=== PATIENT | male | born 1970 | race Caucasian/White ===

== ENCOUNTER → 2020-11-06 08:33 | Outpatient (BNVA) | payer OTHER, SELFPAY | PROVIDERS: PCP Physician Assistant; Referring Provider Physician Assistant; Visit Provider Family Medicine Adult Medicine | DX: Z76.89 Persons encountering health services in other specified circumstances (principal) ==

== ENCOUNTER → 2021-02-05 08:56 | Outpatient (BNVA) | payer OTHER, SELFPAY | PROVIDERS: PCP Physician Assistant; Visit Provider Family Medicine Adult Medicine ==

== ENCOUNTER → 2021-03-05 09:33 | Outpatient (BNVA) | payer OTHER, SELFPAY | PROVIDERS: PCP Physician Assistant; Visit Provider Family Medicine Adult Medicine | DX: M54.16 Radiculopathy, lumbar region (principal) ==

== ENCOUNTER → 2021-04-02 09:20 | Outpatient (BNVA) | payer OTHER, SELFPAY | PROVIDERS: PCP Physician Assistant; Visit Provider Family Medicine Adult Medicine | DX: M54.16 Radiculopathy, lumbar region (principal) ==

== ENCOUNTER → 2021-05-07 09:57 | Outpatient (BNVA) | payer OTHER, SELFPAY | PROVIDERS: PCP Physician Assistant; Visit Provider Anesthesiology ==

== ENCOUNTER → 2021-06-02 08:30 | Outpatient (BNVA) | payer OTHER, SELFPAY | PROVIDERS: PCP Physician Assistant; Visit Provider Family Medicine Adult Medicine | DX: M54.16 Radiculopathy, lumbar region (principal) ==

== ENCOUNTER → 2021-06-30 14:51 | Outpatient (BNVA) | payer OTHER, SELFPAY | PROVIDERS: PCP Physician Assistant; Visit Provider Family Medicine Adult Medicine ==

== ENCOUNTER 2021-07-31 16:34 | Outpatient (REF) | payer OTHER, SELFPAY ==
--- NOTE | ~2021-07-31 | MR_ITS ---
EXAMINATION: MR LUMBAR SPINE WITHOUT CONTRAST CLINICAL INFORMATION: Chronic pain syndrome. COMPARISON: There are no prior studies available for comparison. TECHNIQUE: MRI of the lumbar spine was obtained using routine sequences without contrast. FINDINGS: VERTEBRAL BODIES AND PARASPINAL STRUCTURES: There is a mild retrolisthesis of L5 on S1 with narrowing of intervertebral disc height. There is also narrowing of intervertebral disc height at L4-L5, and there is loss of signal from the discs at both these levels. There are degenerative endplate contour changes at these levels with predominantly fatty endplate signal. Intervertebral discs appear normal at other levels. The vertebral bodies have normal height and contour, and no fractures are demonstrated. Marrow signal is homogenous. The visualized retroperitoneal and pelvic structures are unremarkable. CONUS MEDULLARIS AND CAUDA EQUINA: Normal, terminating at the level of L1. The lower thoracic spinal cord appears normal. The cauda equina nerve roots and filum terminale appear normal. SPINAL LEVELS: L1-L2 and L2-L3: The facet joints appear normal bilaterally. Disc contour is normal. There is no central stenosis or foraminal narrowing. L3-L4: There is mild facet arthropathy bilaterally. There is a small left foraminal disc protrusion without definite exiting nerve root impingement. The neural foramina are patent. There is no central stenosis. L4-L5: There is mild bilateral facet arthropathy. There is a broad-based disc protrusion which is most prominent on the left extending into the left subarticular recess with impingement on the traversing left L5 nerve root. Small protrusions are noted in the inferior neural foramina bilaterally with likely impingement on the exiting left L4 nerve root. There is no central stenosis. L5-S1: There is moderate bilateral facet arthropathy. There is a broad-based posterior disc protrusion which is focally more prominent in the midline with mild distortion of the ventral thecal sac. There is no central stenosis. Small foraminal disc osteophyte complexes impinging on the exiting L5 nerve roots. MR/MR lumbar spine wo con IMPRESSION: 1. At L4-L5 there is facet arthropathy and a broad-based posterior disc protrusion extending into the left neural foramen with impingement on the exiting L4 and traversing L5 nerve roots. There is no central stenosis. 2. At L5-S1 there are facet arthropathic changes. There is a small disc protrusion without central stenosis. There are small disc osteophyte complexes impinging on the exiting L5 nerve roots.
== END 2021-07-31 16:35 | disposition home or self-care (01) ==
LOC: HO.MRI 16:34
PROVIDERS: Visit Provider Anesthesiology
DX: M54.16 Radiculopathy, lumbar region (principal); M96.1 Postlaminectomy syndrome, not elsewhere classified; G89.4 Chronic pain syndrome
CPT/HCPCS: 72148

== ENCOUNTER 2023-08-31 08:01 | Outpatient (AMB) | payer OTHER, SELFPAY ==
--- NOTE | 2023-08-31 08:24 | A.OFFPC_ITS ---
Vital Signs 08/31/23 08:25 Height 5 ft 11 in Weight 208 lb BMI 29.0 BP 116/78 Blood Pressure Location Lt brachial Position Sitting Pulse 88 Pulse Source Pulse Oximeter Pulse Oximetry (%) 98 Oxygen Delivery Method Room Air Intake Visit Reasons: medication review [employer] Product Development Manager Required: No Accompanied by: Self / Same As Patient Allergies No Known Allergies [No Known Allergies*] Allergy (Verified 08/31/23 08:36) Medication List - Last Reconciled 08/31/23 by Mark Marino PA-C albuterol sulfate 90 mcg/actuation 2 puffs inhalation Q4H PRN aspirin (Adult Low Dose Aspirin) 81 mg PO DAILY esomeprazole magnesium (Nexium) 20 mg PO DAILY ibuprofen 200 mg PO Q6H PRN ketoconazole 2% 1 appl topical 2XW 4 weeks lidocaine 5% 1 appl topical DAILY PRN 30 days tramadol 50 mg PO BID 30 days Tobacco use date assessed: 08/31/23 Dental Screening Dental Screen Date: 08/31/23 Did you have a dental visit in the last 12 months?: No Did you have a dental problem in the last 6 months where you did not have access to dental care?: No Was dental information given to patient?: No HPI medication review HPI Details Patient is a 52-year-old male here today for a six-month follow-up visit. Patient has a past medical history significant for chronic lumbar disc disease/post laminectomy syndrome, tobacco use disorder, asthma. Concerns: Reports having a warty like lesion on his left hand. Has tried [id number] meds without effectiveness. He would like treatment for this. .. Asthma: Reports his asthma is fairly well controlled, only seldomly has to use his albuterol rescue inhaler. Denies any nighttime awakenings with asthma symptoms. Unfortunately continues to smoke half a pack of cigarettes per day .. Smokeing: Still smoking 10-12 cigs per day, he is interested in lung cancer screening program as he reports he has been smoking since age 16 .. Lumbar disc disease: Continues with tramadol b.i.d. with decent pain relief. He is asking for a increase though did not feel it is appropriate. He is considering returning to Pain Management for further pain reduction modalities and injections. Colon cancer screening: He is interested in colonoscopy. [facility] Medical History Asthma Chronic pain syndrome Left lumbar radiculopathy Postlaminectomy syndrome Family History Mother Mental health disorder Thyroid condition Social History Housing: House Alcohol intake: never Patient Tobacco Use Status: Current everyday Tobacco user Cigarettes Per Day: 12 e-Cigarette/Vaping Use: Never Used Second Hand Smoke Exposure: No Current occupational status: employed Current occupation: Trade school employed aerospace manufacturing inspector Cognitive needs: No Hearing needs: No Vision needs: Yes Questionnaire PHQ-9 Over the last 2 weeks, how often have you been bothered by any of the following problems? 1. Little interest or pleasure in doing things: not at all 2. Feeling down, depressed, or hopeless: not at all 3. Trouble falling or staying asleep, or sleeping too much: not at all 4. Feeling tired or having little energy: not at all 5. Poor appetite or overeating: not at all 6. Feeling bad about yourself - or that you are a failure or have let yourself or your family down: not at all 7. Trouble concentrating on things, such as reading the newspaper or watching television: not at all 8. Moving or speaking so slowly that other people could have noticed. Or the opposite - being so fidgety or restless that you have been moving around a lot more than usual: not at all 9. Thoughts that you would be better off or of hurting yourself in some way: not at all Total score: 0 Depression Screening Interpretation: Negative Depression Screening Done: Yes 58421 - PHQ-9 Billing: Yes Source: Developed by Drs. Dawood Kidd, Karo Morris, Ari Berman and colleagues, with an educational kristin from [employer]. Thrive Questionnaire Date Thrive assessed: 08/31/23 I am a: Patient What is your living situation today?: I have a steady place to live Within the past 12 months, did the food you bought not last and you didn't have the money to get more?: Never true Within the past 12 months, did you worry whether your food would run out before you got money to buy more?: Never true Do you have trouble paying for medicines?: No Do you have trouble getting transportation to medical appointments?: No Do you have trouble paying your heating and electricity bill?: No Do you have trouble taking care of your child, family member or friend?: No Do you have trouble with day-to-day activities such as bathing, preparing meals, shopping, managing finances, etc.?: No Are you currently unemployed and looking for a job?: No Are you interested in more education?: No Please select the resources that you would like help with: None Currently or been in a relationship where the following occur: no concerns reported AUDIT C Alcohol Use Questionnaire (AUDIT-C) 1. How often do you have a drink containing alcohol?: Monthly or less 2. How many drinks containing alcohol do you have on a typical day when you are drinking?: 1 or 2 3. How often do you have six or more drinks on one occasion?: Never Total Score: 1 GERBER-7 AMB Questionnaire GERBER-7 Date GERBER - 7 assessed: 08/31/23 Feeling nervous, anxious, or on edge: 0 = Not at all Not being able to stop or control worryin = Not at all Worrying too much about different things: 0 = Not at all Trouble relaxin = Not at all Being so restless that it is hard to sit still: 0 = Not at all Becoming easily annoyed or irritable: 0 = Not at all Feeling afraid as if something awful might happen: 0 = Not at all Total GERBER-7 score (0-4 normal; 5-9 mild; 10-14 moderate; 15-21 severe): 0 Source: Developed by Drs. Dawood Kidd, Karo Morris, Ari Berman and colleagues, with an educational kristin from [employer]. GERBER-7 Assessment Billing GERBER-7 Assessment Tool: GERBER-7 Assessment 05740 ACT Questionnaire In the past 4 weeks, how much of the time did your asthma keep you from getting as much done at work, school or at home?: None of the time During the past 4 weeks, how often have you had shortness of breath?: Not at all During the past 4 weeks, how often did your asthma symptoms wake you up at night or earlier than usual in the morning?: Not at all During the past 4 weeks, how often have you had to use your rescue inhaler or nebulizer medication?: Not at all How would you rate your asthma control during the past 4 weeks?: Well controlled ACT Interpretation: Negative Score: 24 Review of Systems Const Denies headache(s) Eyes Denies loss of vision ENT Denies vertigo, Denies dizziness, Denies headache(s) and Denies sore throat Card Denies chest pain, Denies leg edema and Denies lightheadedness Resp Denies cough, Denies hemoptysis and Denies wheezing GI Denies abdominal pain, Denies melena, Denies constipation, Denies diarrhea and Denies vomiting Denies dysuria, Denies urinary frequency and Denies urinary urgency Musc Reports back pain, Denies arthralgias, Denies joint swelling, Denies numbness and Denies tingling Neuro Denies Abnormal speech present, Denies behavioral changes, Denies vertigo, Denies dizziness, Denies headache(s), Denies loss of vision, Denies memory loss, Denies numbness and Denies tingling Psych Denies anxiety, Denies behavioral changes, Denies depression, Denies memory loss and Denies panic attacks Matthieu/Lymph Denies easy bleeding and Denies easy bruising Aller/Immun Denies wheezing Physical exam (Primary Care) Vital Signs: Last Vital Signs Pulse 88 08/31/23 08:25 BP 116/78 08/31/23 08:25 Pulse Ox 98 08/31/23 08:25 Oxygen Delivery Method Room Air 08/31/23 08:25 BMI result Body Mass Index 29.0 Tobacco/Smoking Status: Tobacco use Status Tobacco use date assessed 08/31/23 08/31/23 08:31 Patient Tobacco Use Status Current everyday Tobacco 08/31/23 08:31 e-Cigarette/Vaping Use Never Used 08/31/23 08:31 Are you ready to quit: No Tobacco cessation counseling provided: Yes Relapse Prevention: discussed the importance of a supportive environment, discussed negative mood or depression after quitting, weight gain after smoking is common and discussed dietary, exercise and/or lifestyle changes Number of minutes spent counselin CPT code: 17190 - 4-10 Minutes PHQ-9: PHQ-9 Score PHQ-9: Total score 0 08/31/23 08:31 Depression Screening Interpretation: Negative Thrive Assessment: Date of Thrive Assessment Date Thrive assessed 08/31/23 08/31/23 08:31 Currently or been in a relationship where the following occur: no concerns reported Const General: healthy appearing, no acute distress, alert and awake Nutritional Appearance: well nourished Orientation/consciousness: oriented to person, oriented to place and oriented to time HENMT Ears: TM's normal bilaterally General nose exam: Normal nasal mucous membranes and turbinates present Eyes Conjunctivae: conjunctivae normal Sclerae: sclerae normal Pupils: Equal, round and reactive pupils present Neck Neck: Yes no lymphadenopathy and Yes no JVD Thyroid: Thyroid normal Carotids: no bruits Resp Effort & Inspection: normal respiratory effort and not tachypneic Auscultation: no crackles, no rales, no rhonchi and no wheezes Cardio Rate: regular rate Rhythm: regular rhythm Heart sounds: no murmurs and normal S1 and S2 GI Palpation (GI): Soft to palpation, nontender, no hepatomegaly and no splenomegaly Auscultation: normal bowel sounds Skin General skin exam: no rashes or lesions noted and dry skin Neuro General: oriented to person, oriented to place and oriented to time Cranial nerves: Yes Equal, round and reactive pupils present Speech: No Abnormal speech present Gait exam (Neuro): Normal gait present Motor exam (neuro): no tremor noted Extrem Right upper extremity: full ROM Left upper extremity: full ROM Right lower extremity: full ROM; no edema Left lower extremity: full ROM; no edema Psych Mental Status: mental status grossly normal Speech and movement: Normal speech and movement present Affect: normal affect Attitude: cooperative Thought process: Normal thought process present Assessment and Plan Assessment & Plan (1) Asthma: Code(s): J45.909 - Unspecified asthma, uncomplicated Qualifiers: Asthma complication type: uncomplicated Asthma persistence: unspecified Asthma severity: mild Qualified Code(s): J45.909 - Unspecified asthma, uncomplicated Plan: Reports his asthma has been fairly stable with p.r.n. use of his albuterol inhaler. Of note he still continues to smoke and does understand he needs to quit though finds it very difficult to do so. (2) Lumbar radicular syndrome: Code(s): M54.16 - Radiculopathy, lumbar region Plan: As per HPI patient was followed by [facility] pain management and has trialed Belbuca though was not effective. He also reports having lower extremity muscle spasms worse at night. Continues on tramadol at 50 mg b.i.d. that has been controlling his lumbar spine pain fairly well. (3) Smoker: Code(s): F17.200 - Nicotine dependence, unspecified, uncomplicated Plan: As per HPI patient continues to smoke and does understand he needs to quit. Has found very difficult to quit. Offered nicotine replacement therapy though he declines my offers. He will try to wean his cigarette smoking on his own. (4) Colon cancer screening: Code(s): Z12.11 - Encounter for screening for malignant neoplasm of colon Plan: Willing to do colonoscopy (5) Verruca(e): Code(s): B07.9 - Viral wart, unspecified Plan: As per [facility] Orders: Orders Comprehensive [place]. Panel Fast 08/31/23 Z13.1 - Encounter for screening for diabetes mellitus Complete Blood Count no Diff 08/31/23 J45.909 - Unspecified asthma, u ncomplicated Prostate Specific Antigen Scr 08/31/23 J45.909 - Unspecified asthma, uncomplicated, Z12.5 - Encounter for screening for malignant neoplasm of prostate Referrals Thoracic Surgery Referral F17.200 - Nicotine dependence, unspecified, uncomplicated Gastroenterology Referral Z12.11 - Encounter for screening for malignant neoplasm of colon Medications: New imiquimod 5% 1 appl topical 3XW 16 weeks 24 ea 0RF B07.9 - Viral wart, unspecified Coding Level of Care Code Est Pt Level 4 (36449) Diagnoses Mild asthma without complication, unspecified whether persistent J45.909 Asthma complication type: uncomplicated Asthma persistence: unspecified Asthma severity: mild Lumbar radicular syndrome M54.16 Smoker F17.200 Colon cancer screening Z12.11 Verruca(e) B07.9 Additional Codes Vital Signs *Quality* - CPT code: 21888 - 4-10 Minutes ([id number]) GERBER-7 Assessment Billing - GERBER-7 Assessment Tool: GERBER-7 Assessment 06239 ([id number])
[2023-08-31 08:25] VITALS: BP 116/78; PULSE 88; O2SAT 98; BMI 29.0
== END 2023-08-31 08:54 | disposition home or self-care (01) ==
PROVIDERS: PCP Physician Assistant; Visit Provider Physician Assistant
DX: J45.909 Unspecified asthma, uncomplicated (principal); M54.16 Radiculopathy, lumbar region; F17.210 Nicotine dependence, cigarettes, uncomplicated; Z12.11 Encounter for screening for malignant neoplasm of colon; B07.9 Viral wart, unspecified
CPT/HCPCS: 99214; 99406

== ENCOUNTER 2023-12-16 | Outpatient (REF) | payer BC, SELFPAY | END 2023-12-16 00:01 | disposition home or self-care (01) | LOC: CF | PROVIDERS: PCP Physician Assistant; Visit Provider Nurse Practitioner Family | DX: Z87.891 Personal history of nicotine dependence (principal) | CPT/HCPCS: G0296 ==

== ENCOUNTER 2023-12-16 08:48 | Outpatient (AMB) | payer BC, SELFPAY ==
--- NOTE | 2023-12-16 08:55 | A.OFFVIS_ITS ---
Intake Intake Visit Reasons: LDCT [place] Allergies No Known Allergies [No Known Allergies*] Allergy (Verified 08/31/23 08:36) HPI HPI Comments History of Present Illness Details Aidan is a pleasant 53 year old male, current 1 ppd smoker with a 35 PYH. Patient has been smoking since age 16 for 37 years at 1 ppd. He was able to quit for 2 years in his 30s. Denies marijuana use. 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 Admits second hand smoke exposure. Admits maternal aunt, smoker, with lung cancer. Denies personal history of cancers. Denies chest CT in last year. Denies recent travel outside the [place]. Denies testing positive for COVID, likelt had it Admits receiving COVID Vaccine x 1 Denies fever, chills, chest pain, new cough (survery +, however pt states chronic cough), hemoptysis or unintentional weight loss. Lung Cancer Screening Questionnaire reviewed with patient by provider. Shared Decision Making Completed. Discussed in detail with patient, the risk versus benefit of LDCT screening. Patient in agreement of proceeding with scan. 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 This patient meets criteria for LDCT for lung cancer screening purposes and is asymptomatic. Offered smoking cessation. Patient has been scheduled for a low dose chest CT for screening purposes at [facility]. We discussed how the results will be obtained depending on CT findings. RADS 1 and RADS 2 will receive a letter with results and will follow up for annual LDCT. Patient informed they will be contacted at later date to schedule upcoming LDCT scan. RADS 3 and RADS 4 will receive a telephone call, or an office visit after reviewing case at our Lung Cancer Conference to determine when the next LDCT will be scheduled or further interventions that may be needed. Discussed importance of screening program and compliance with yearly LDCT scan as scheduled. Risks, benefits, and alternatives were discussed in detail and patient agrees to proceed. Risks discussed include but are not limited to: radiation exposure and possibility of additional intervention for benign disease. Benefits include detection of lung cancer at an early stage. A copy of today's visit and LDCT results will be sent to patient's PCP. Incidental findings on LDCT are PCP's responsibility. If there are incidental findings, our office will ensure that PCP office is aware of these findings. All questions were answered and patient is in agreement of plan. Coding Level of Care Code Lung Cancer Screening G0296 Diagnoses Smoker F17.200
== END 2023-12-16 09:18 | disposition home or self-care (01) ==
PROVIDERS: PCP Physician Assistant; Visit Provider Nurse Practitioner Family
DX: F17.200 Nicotine dependence, unspecified, uncomplicated (principal)
CPT/HCPCS: G0296

== ENCOUNTER 2023-12-19 09:29 | Outpatient (AMB) | payer BC, SELFPAY ==
[2023-12-19 09:51] VITALS: BP 112/80; PULSE 85; O2SAT 97; BMI 28.9
--- NOTE | 2023-12-19 09:51 | MHC.PC.OV ---
Vital Signs 12/19/23 09:51 Height 5 ft 11 in Weight 207 lb 2 oz BMI 28.9 BP 112/80 Blood Pressure Location Lt brachial Position Sitting Pulse 85 Pulse Source Pulse Oximeter Pulse Oximetry (%) 97 Intake Visit Reasons: Annual Exam Intake Note: Patient is here today for a physical. 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 Accompanied by: Self / Same As Patient Allergies No Known Allergies [No Known Allergies*] Allergy (Verified 12/19/23 09:59) Medication List - Last Reconciled 12/19/23 by Mark Marino PA-C albuterol sulfate 90 mcg/actuation 2 puffs inhalation Q4H PRN aspirin (Adult Low Dose Aspirin) 81 mg PO DAILY esomeprazole magnesium (Nexium) 20 mg PO DAILY ibuprofen 200 mg PO Q6H PRN imiquimod 5% 1 appl topical 3XW 16 weeks ketoconazole 2% 1 appl topical 2XW 4 weeks lidocaine 5% 1 appl topical DAILY PRN 30 days tramadol 50 mg PO BID 30 days Tobacco use date assessed: 12/19/23 Dental Screening Dental Screen Date: 12/19/23 Did you have a dental visit in the last 12 months?: No Did you have a dental problem in the last 6 months where you did not have access to dental care?: No Was dental information given to patient?: Patient declined HPI Annual Exam HPI Details Patient is a 53-year-old male here today annual physical. Patient has a past medical history significant for chronic lumbar disc disease/post laminectomy syndrome, tobacco use disorder, asthma. .. Asthma: Reports his asthma is fairly well controlled, only seldomly has to use his albuterol rescue inhaler. Denies any nighttime awakenings with asthma symptoms. Unfortunately continues to smoke half a pack of cigarettes per day .. Smokeing: Still smoking 10-12 cigs per day, he is interested in lung cancer screening program as he reports he has been smoking since age 16 .. Lumbar disc disease: Continues with tramadol b.i.d. with decent pain relief. He is asking for a increase though did not feel it is appropriate. He is considering returning to Pain Management for further pain reduction modalities and injections. Colon cancer screening: He is been trying to get in contact with [facility] to schedule colonoscopy vaccine: Need Flu and singles, PCV . 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 1. Little interest or pleasure in doing things: not at all 2. Feeling down, depressed, or hopeless: not at all 3. Trouble falling or staying asleep, or sleeping too much: not at all 4. Feeling tired or having little energy: not at all 5. Poor appetite or overeating: not at all 6. Feeling bad about yourself - or that you are a failure or have let yourself or your family down: not at all 7. Trouble concentrating on things, such as reading the newspaper or watching television: not at all 8. Moving or speaking so slowly that other people could have noticed. Or the opposite - being so fidgety or restless that you have been moving around a lot more than usual: not at all 9. Thoughts that you would be better off or of hurting yourself in some way: not at all Total score: 0 Depression Screening Interpretation: Negative Depression Screening Done: Yes 64332 - PHQ-9 Billing: Yes Source: Developed by Drs. Dawood Kidd, Karo Morris, Ari Berman and colleagues, with an educational kristin from [employer]. Thrive Questionnaire Date Thrive assessed: 12/19/23 I am a: Patient What is your living situation today?: I have a steady place to live Within the past 12 months, did the food you bought not last and you didn't have the money to get more?: Never true Within the past 12 months, did you worry whether your food would run out before you got money to buy more?: Never true Do you have trouble paying for medicines?: No Do you have trouble getting transportation to medical appointments?: No Do you have trouble paying your heating and electricity bill?: No Do you have trouble taking care of your child, family member or friend?: No Do you have trouble with day-to-day activities such as bathing, preparing meals, shopping, managing finances, etc.?: No Are you currently unemployed and looking for a job?: No Are you interested in more education?: No Please select the resources that you would like help with: None Currently or been in a relationship where the following occur: no concerns reported THRIVE Score: 0 AUDIT C Alcohol Use Questionnaire (AUDIT-C) 1. How often do you have a drink containing alcohol?: 2-4 times a month 2. How many drinks containing alcohol do you have on a typical day when you are drinking?: 3 or 4 3. How often do you have six or more drinks on one occasion?: Never Total Score: 3 GERBER-7 AMB Questionnaire GERBER-7 Date GERBER - 7 assessed: 12/19/23 Feeling nervous, anxious, or on edge: 0 = Not at all Not being able to stop or control worryin = Not at all Worrying too much about different things: 0 = Not at all Trouble relaxin = Not at all Being so restless that it is hard to sit still: 0 = Not at all Becoming easily annoyed or irritable: 0 = Not at all Feeling afraid as if something awful might happen: 0 = Not at all Total GERBER-7 score (0-4 normal; 5-9 mild; 10-14 moderate; 15-21 severe): 0 Source: Developed by Drs. Dawood Kidd, Karo Morris, Ari Berman and colleagues, with an educational kristin from [employer]. GERBER-7 Assessment Billing GERBER-7 Assessment Tool: GERBER-7 Assessment 71546 ACT Questionnaire In the past 4 weeks, how much of the time did your asthma keep you from getting as much done at work, school or at home?: None of the time During the past 4 weeks, how often have you had shortness of breath?: Not at all During the past 4 weeks, how often did your asthma symptoms wake you up at night or earlier than usual in the morning?: Not at all During the past 4 weeks, how often have you had to use your rescue inhaler or nebulizer medication?: Not at all How would you rate your asthma control during the past 4 weeks?: Completely controlled ACT Interpretation: Negative Score: 25 Review of Systems Const Denies body aches, Denies chills, Denies excessive sweating, Denies fatigue, Denies fever(s) and Denies headache(s) Eyes Denies blurry vision ENT Denies dysphagia, Denies vertigo, Denies dizziness, Denies headache(s), Denies hearing loss and Denies tinnitus Card Denies chest pain, Denies chest pain with activity, Denies syncope, Denies irregular heart rhythm and Denies dyspnea Resp Denies chest congestion, Denies cough, Denies hemoptysis, Denies dyspnea and Denies wheezing GI Denies abdominal pain, Denies melena, Denies hematochezia, Denies coffee ground emesis, Denies dysphagia, Denies diarrhea, Denies nausea and Denies vomiting Denies difficulty urinating, Denies dysuria, Denies urinary frequency, Denies urinary hesitancy and Denies urinary urgency Musc Denies arthralgias, Denies limited range of motion, Denies muscle cramps and Denies muscle weakness Skin/Breast Denies rash and Denies skin ulcer Neuro Denies Abnormal speech present, Denies confusion, Denies vertigo, Denies dizziness, Denies syncope, Denies headache(s), Denies memory loss and Denies seizure-like activity Psych Denies anxiety, Denies confusion, Denies depression, Denies memory loss, Denies panic attacks and Denies paranoia Endo Denies excessive sweating, Denies fatigue, Denies flushing, Denies polydipsia and Denies polyuria Aller/Immun Denies wheezing Physical exam (Primary Care) Vital Signs: Last Vital Signs Pulse 85 12/19/23 09:51 BP 112/80 12/19/23 09:51 Pulse Ox 97 12/19/23 09:51 BMI result Body Mass Index 28.9 Tobacco/Smoking Status: Tobacco use Status Tobacco use date assessed 12/19/23 12/19/23 09:56 Patient Tobacco Use Status Current everyday Tobacco 12/19/23 09:52 e-Cigarette/Vaping Use Never Used 12/19/23 09:52 Are you ready to quit: No Tobacco cessation counseling provided: Yes Items discussed: Nicotine replacement and QuitWorks Relapse Prevention: discussed the importance of a supportive environment, discussed negative mood or depression after quitting, weight gain after smoking is common and discussed dietary, exercise and/or lifestyle changes Number of minutes spent counselin CPT code: 11598 - 4-10 Minutes PHQ-9: PHQ-9 Score PHQ-9: Total score 0 12/19/23 09:53 Depression Screening Interpretation: Negative Thrive Assessment: Date of Thrive Assessment Date Thrive assessed 12/19/23 12/19/23 09:53 Currently or been in a relationship where the following occur: no concerns reported Const Other: Overweight General: cooperative, comfortable, no acute distress, alert and awake; No confusion Orientation/consciousness: oriented to person, oriented to place, patient oriented x3 and No confusion HENMT Head: Yes normocephalic Ears: external ears normal and TM's normal bilaterally Face and sinus: No sinus tenderness Mouth: Normal oral and palatal mucosa present and tongue normal Teeth and gingiva: dentition normal and gingiva normal Throat: Yes posterior oropharynx normal, Yes tonsils normal and Yes uvula midline Eyes Conjunctivae: conjunctivae normal Sclerae: sclerae normal Pupils: Equal, round and reactive pupils present EOM: EOMs intact bilaterally Direct Ophthalmoscopy: No no photophobia Neck Neck: Yes no lymphadenopathy, No tender and Yes no JVD Thyroid: Thyroid normal Carotids: no bruits Chest Chest palpation & inspection: no tenderness Resp Effort & Inspection: normal respiratory effort, no audible wheezes, not labored and no stridor Auscultation: no crackles, no rales, no rhonchi and no wheezes Cardio Jugular venous distension: no JVD Rate: regular rate, not bradycardic and not tachycardic Rhythm: regular rhythm Bruits: no carotid bruits Peripheral pulses: Peripheral pulses 2+ throughout GI Inspection: Yes normal to inspection, No abdominal wall ecchymosis and No visible herniation Palpation (GI): Soft to palpation, nontender, no guarding, not rigid and No hepatosplenomegaly present Auscultation: normoactive bowel sounds General: Yes no CVA tenderness Back/Spine/Pelvis Back: no CVA tenderness and No back tenderness Cervical Spine: cervical ROM normal Thoracic/Lumbar Spine: thoracic and lumbar spine normal to inspection, straight leg raise negative bilaterally, No thoraco-lumbar ROM limited and No lumbar spinal tenderness Skin Lesions: no lesions Rashes: no rashes Wounds: no wounds Neuro General: oriented to person, oriented to place, patient oriented x3, CN's II-XI intact bilaterally and No confusion Cranial nerves: Yes Equal, round and reactive pupils present and Yes Normal accommodation reflex present Cognition (Neuro): normal cognition Speech: No Abnormal speech present Gait exam (Neuro): Normal gait present Motor exam (neuro): 5/5 motor strength present throughout Extrem Right upper extremity: full ROM; no cyanosis Left upper extremity: full ROM; no cyanosis Right lower extremity: no edema Left lower extremity: no edema Psych Appearance: grossly normal Mental Status: mental status grossly normal Affect: normal affect Attitude: cooperative Thought process: Normal thought process present Assessment and Plan Assessment & Plan (1) Annual physical exam: Code(s): Z00.00 - Encounter for general adult medical examination without abnormal findings (2) Asthma: Code(s): J45.909 - Unspecified asthma, uncomplicated Qualifiers: Asthma severity: mild Asthma persistence: unspecified Asthma complication type: uncomplicated Qualified Code(s): J45.909 - Unspecified asthma, uncomplicated Plan: Reports his asthma has been fairly stable with p.r.n. use of his albuterol inhaler. Of note he still continues to smoke and does understand he needs to quit though finds it very difficult to do so. (3) Lumbar radicular syndrome: Code(s): M54.16 - Radiculopathy, lumbar region Plan: As per HPI patient was followed by [facility] pain management and has trialed Belbuca though was not effective. He also reports having lower extremity muscle spasms worse at night. Continues on tramadol at 50 mg b.i.d. that has been controlling his lumbar spine pain fairly well. (4) Smoker: Code(s): F17.200 - Nicotine dependence, unspecified, uncomplicated Plan: As per HPI patient continues to smoke and does understand he needs to quit. Has found very difficult to quit. Offered nicotine replacement therapy though he declines my offers. He will try to wean his cigarette smoking on his own. He has seen the lung cancer screening program and anticipates getting CT lung screening. (5) Colon cancer screening: Code(s): Z12.11 - Encounter for screening for malignant neoplasm of colon Plan: Has been trying to call [facility] to schedule colonoscopy. Coding Level of Care Code Est Pt Prev Care 40-64y(70108) Diagnoses Annual physical exam Z00.00 Mild asthma without complication, unspecified whether persistent J45.909 Asthma severity: mild Asthma persistence: unspecified Asthma complication type: uncomplicated Lumbar radicular syndrome M54.16 Smoker F17.200 Colon cancer screening Z12.11 Additional Codes GERBER-7 Assessment Billing - GERBER-7 Assessment Tool: GERBER-7 Assessment 72825 ([id number]) Vital Signs *Quality* - CPT code: 82881 - 4-10 Minutes ([id number])
== END 2023-12-19 10:17 | disposition home or self-care (01) ==
PROVIDERS: PCP Physician Assistant; Visit Provider Physician Assistant
DX: Z00.00 Encounter for general adult medical examination without abnormal findings (principal); J45.909 Unspecified asthma, uncomplicated; M54.16 Radiculopathy, lumbar region; F17.210 Nicotine dependence, cigarettes, uncomplicated
CPT/HCPCS: 99396

== ENCOUNTER 2024-12-20 08:49 | Outpatient (AMB) | payer BC, SELFPAY ==
--- NOTE | 2024-12-20 09:00 | A.OFFPC_ITS ---
Vital Signs 12/20/24 09:02 Height 5 ft 11 in Weight 218 lb 8 oz BMI 30.5 BP 136/96 H Blood Pressure Location Lt brachial Position Sitting Pulse 92 Pulse Source Pulse Oximeter Temp 97.1 F Temp Source Skin Pulse Oximetry (%) 97 Oxygen Delivery Method Room Air Intake Visit Reasons: pe Intake Note: Patient is here today for a physical. Captain Cannery Tender Required: No Correctional Nurse: Not Required per policy Accompanied by: Self / Same As Patient Allergies No Known Allergies [No Known Allergies*] Allergy (Verified 12/20/24 09:19) Medication List - Last Reconciled 12/20/24 by Mark Marino PA-C albuterol sulfate 90 mcg/actuation 2 puffs inhalation Q4H PRN aspirin (Adult Low Dose Aspirin) 81 mg PO DAILY esomeprazole magnesium (Nexium) 20 mg PO DAILY ibuprofen 200 mg PO Q6H PRN imiquimod 5% 1 appl topical 3XW 16 weeks ketoconazole 2% 1 appl topical 2XW 4 weeks lidocaine 5% 1 appl topical DAILY PRN 30 days tramadol 50 mg PO BID 30 days Tobacco use date assessed: 12/20/24 Dental Screening Dental Screen Date: 12/20/24 Did you have a dental visit in the last 12 months?: No Did you have a dental problem in the last 6 months where you did not have access to dental care?: No Was dental information given to patient?: Patient has dentist HPI pe HPI Details Patient is a 54-year-old male here today annual physical. Patient has a past medical history significant for chronic lumbar disc disease/post laminectomy syndrome, tobacco use disorder, asthma. Concern--> reports noting weight gain over the last several months without any change in his diet. He has not been physically active. Also reports dry mouth, increased thirst and urination which raises concern for hyperglycemia. Will evaluate for diabetes. He also does report having shortness of breath on exertion which has been a chronic issue that he relates to his years of smoking. He does have lower extremity edema related to peripheral vascular disease though unclear if he is developing signs of heart failure. He does have elevated blood pressure readings today in office. .. Asthma: Reports his asthma is fairly well controlled, only seldomly has to use his albuterol rescue inhaler. Denies any nighttime awakenings with asthma symptoms. Unfortunately continues to smoke half a pack of cigarettes per day. Class 1 obesity: Have noted weight gain since last office visit. Today's BMI at 30.5. .. Smokeing: Still smoking 10-12 cigs per day, he is interested in lung cancer screening program as he reports he has been smoking since age 16 .. Lumbar disc disease: Continues with tramadol b.i.d. with decent pain relief. He is asking for a increase though did not feel it is appropriate. He is considering returning to Pain Management for further pain reduction modalities and injections. Colon cancer screening: Willing to try Cologuard vaccine: needs though declined Flu and shingles, PCV . Up-to-date with COVID and Tdap [facility] Medical History Chronic pain syndrome Postlaminectomy syndrome Left lumbar radiculopathy Asthma Surgical History History of back surgery Family History Mother Mental health disorder Thyroid condition Maternal Aunt Lung cancer Social History (Updated 12/20/24 @ 09:22 by Mark Marino PA-C) Housing: House Alcohol intake: current Alcohol intake frequency: holidays/special occasions only Alcohol type: beer Patient Tobacco Use Status: Current everyday Tobacco user Tobacco use type: Cigarette Cigarette Packs Per Day: 1 Cigarettes Per Day: 15 Years Smoked: 35 e-Cigarette/Vaping Use: Never Used Second Hand Smoke Exposure: Yes service: No Current occupational status: employed 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 1. Little interest or pleasure in doing things: not at all 2. Feeling down, depressed, or hopeless: not at all 3. Trouble falling or staying asleep, or sleeping too much: not at all 4. Feeling tired or having little energy: not at all 5. Poor appetite or overeating: not at all 6. Feeling bad about yourself - or that you are a failure or have let yourself or your family down: not at all 7. Trouble concentrating on things, such as reading the newspaper or watching television: not at all 8. Moving or speaking so slowly that other people could have noticed. Or the opposite - being so fidgety or restless that you have been moving around a lot more than usual: not at all 9. Thoughts that you would be better off or of hurting yourself in some way: not at all Total score: 0 Depression Screening Interpretation: Negative Depression Screening Done: Yes 39516 - PHQ-9 Billing: Yes Source: Developed by Drs. Dawood Kidd, Karo Morris, Ari Berman and colleagues, with an educational kristin from [employer]. Thrive Questionnaire Date Thrive assessed: 12/20/24 I am a: Patient What is your living situation today?: I have a steady place to live Within the past 12 months, did the food you bought not last and you didn't have the money to get more?: Never true Within the past 12 months, did you worry whether your food would run out before you got money to buy more?: Never true Do you have trouble paying for medicines?: No Do you have trouble getting transportation to medical appointments?: No Do you have trouble paying your heating and electricity bill?: No Do you have trouble taking care of your child, family member or friend?: No Do you have trouble with day-to-day activities such as bathing, preparing meals, shopping, managing finances, etc.?: No Are you currently unemployed and looking for a job?: No Are you interested in more education?: No Please select the resources that you would like help with: None Currently or been in a relationship where the following occur: No concerns reported THRIVE Score: 0 AUDIT C Alcohol Use Questionnaire (AUDIT-C) 1. How often do you have a drink containing alcohol?: 2-4 times a month 2. How many drinks containing alcohol do you have on a typical day when you are drinking?: 1 or 2 Total Score: 2 GERBER-7 AMB Questionnaire GERBER-7 Date GERBER - 7 assessed: 12/20/24 Feeling nervous, anxious, or on edge: 0 = Not at all Not being able to stop or control worryin = Not at all Worrying too much about different things: 0 = Not at all Trouble relaxin = Not at all Being so restless that it is hard to sit still: 0 = Not at all Becoming easily annoyed or irritable: 0 = Not at all Feeling afraid as if something awful might happen: 0 = Not at all Total GERBER-7 score (0-4 normal; 5-9 mild; 10-14 moderate; 15-21 severe): 0 Source: Developed by Drs. Dawood Kidd, Karo Morris, Ari Berman and colleagues, with an educational kristin from [employer]. GERBER-7 Assessment Billing GERBER-7 Assessment Tool: GERBER-7 Assessment 90850 Review of Systems Const Denies body aches, Denies chills, Denies excessive sweating, Denies fatigue, Denies fever(s) and Denies headache(s) Eyes Denies blurry vision ENT Denies dysphagia, Denies vertigo, Denies dizziness, Denies headache(s), Denies hearing loss and Denies tinnitus Card Denies chest pain, Denies chest pain with activity, Denies syncope, Denies irregular heart rhythm and Denies dyspnea Resp Denies chest congestion, Denies cough, Denies hemoptysis, Denies dyspnea and Denies wheezing GI Denies abdominal pain, Denies melena, Denies hematochezia, Denies coffee ground emesis, Denies dysphagia, Denies diarrhea, Denies nausea and Denies vomiting Denies difficulty urinating, Denies dysuria, Denies urinary frequency, Denies urinary hesitancy and Denies urinary urgency Musc Denies arthralgias, Denies limited range of motion, Denies muscle cramps and Denies muscle weakness Skin/Breast Denies rash and Denies skin ulcer Neuro Denies Abnormal speech present, Denies confusion, Denies vertigo, Denies dizziness, Denies syncope, Denies headache(s), Denies memory loss and Denies seizure-like activity Psych Denies anxiety, Denies confusion, Denies depression, Denies memory loss, Denies panic attacks and Denies paranoia Endo Denies excessive sweating, Denies fatigue, Denies flushing, Denies polydipsia and Denies polyuria Aller/Immun Denies wheezing Physical exam (Primary Care) Vital Signs: Last Vital Signs Temp 97.1 F 12/20/24 09:02 Pulse 92 12/20/24 09:02 BP 136/96 H 12/20/24 09:02 Pulse Ox 97 12/20/24 09:02 Oxygen Delivery Method Room Air 12/20/24 09:02 BMI result Body Mass Index 30.5 BMI Assessment/Plan discussion: High BMI High, discussed plan: lifestyle, weight reduction, dietary and physical activity Tobacco/Smoking Status: Tobacco use Status Tobacco use date assessed 12/20/24 12/20/24 09:06 Patient Tobacco Use Status Current everyday Tobacco 12/20/24 09:06 Tobacco use type Cigarette 12/20/24 09:06 e-Cigarette/Vaping Use Never Used 12/20/24 09:06 Are you ready to quit: No Tobacco cessation counseling provided: Yes Items discussed: Nicotine replacement Relapse Prevention: discussed the importance of a supportive environment, discussed negative mood or depression after quitting, weight gain after smoking is common and discussed dietary, exercise and/or lifestyle changes Number of minutes spent counselin CPT code: 89963 - 4-10 Minutes PHQ-9: PHQ-9 Score PHQ-9: Total score 0 12/20/24 09:06 Depression Screening Interpretation: Negative Thrive Assessment: Date of Thrive Assessment Date Thrive assessed 12/20/24 12/20/24 09:06 Currently or been in a relationship where the following occur: No concerns reported Const General: cooperative, comfortable, no acute distress, alert and awake; No confusion Orientation/consciousness: oriented to person, oriented to place, patient oriented x3 and No confusion HENMT Head: Yes normocephalic Ears: external ears normal and TM's normal bilaterally Face and sinus: No sinus tenderness Mouth: Normal oral and palatal mucosa present and tongue normal Teeth and gingiva: dentition normal and gingiva normal Throat: Yes posterior oropharynx normal, Yes tonsils normal and Yes uvula midline Eyes Conjunctivae: conjunctivae normal Sclerae: sclerae normal Pupils: Equal, round and reactive pupils present EOM: EOMs intact bilaterally Direct Ophthalmoscopy: No no photophobia Neck Neck: Yes no lymphadenopathy, No tender and Yes no JVD Thyroid: Thyroid normal Carotids: no bruits Chest Chest palpation & inspection: no tenderness Resp Effort & Inspection: normal respiratory effort, no audible wheezes, not labored and no stridor Auscultation: no crackles, no rales, no rhonchi and no wheezes Cardio Jugular venous distension: no JVD Rate: regular rate, not bradycardic and not tachycardic Rhythm: regular rhythm Bruits: no carotid bruits Peripheral pulses: Peripheral pulses 2+ throughout GI Inspection: Yes normal to inspection, No abdominal wall ecchymosis and No visible herniation Palpation (GI): Soft to palpation, nontender, no guarding, not rigid and No hepatosplenomegaly present Auscultation: normoactive bowel sounds General: Yes no CVA tenderness Back/Spine/Pelvis Back: no CVA tenderness and No back tenderness Cervical Spine: cervical ROM normal Thoracic/Lumbar Spine: thoracic and lumbar spine normal to inspection, straight leg raise negative bilaterally, No thoraco-lumbar ROM limited and No lumbar spinal tenderness Skin Lesions: no lesions Rashes: no rashes Wounds: no wounds Neuro General: oriented to person, oriented to place, patient oriented x3, CN's II-XI intact bilaterally and No confusion Cranial nerves: Yes Equal, round and reactive pupils present and Yes Normal accommodation reflex present Cognition (Neuro): normal cognition Speech: No Abnormal speech present Gait exam (Neuro): Normal gait present Motor exam (neuro): 5/5 motor strength present throughout Extrem Right upper extremity: full ROM; no cyanosis Left upper extremity: full ROM; no cyanosis Right lower extremity: no edema Left lower extremity: no edema Psych Appearance: grossly normal Mental Status: mental status grossly normal Affect: normal affect Attitude: cooperative Thought process: Normal thought process present Coding Level of Care Code Est Pt Prev Care 40-64y(19710) Diagnoses Annual physical exam Z00.00 SOB (shortness of breath) on exertion R06.02 Increased thirst R63.1 Postlaminectomy syndrome M96.1 Smoker F17.200 Elevated blood pressure reading R03.0 Weight gain R63.5 Additional Codes PHQ-9 - 92097 - PHQ-9 Billing: Yes ([id number]) GERBER-7 Assessment Billing - GERBER-7 Assessment Tool: GERBER-7 Assessment 14892 ([id number]) Vital Signs *Quality* - CPT code: 25947 - 4-10 Minutes ([id number]) Assessment & Plan Assessment & Plan (1) Annual physical exam: Code(s): Z00.00 - Encounter for general adult medical examination without abnormal findings Category: Medical Plan: As per HPI (2) SOB (shortness of breath) on exertion: Code(s): R06.02 - Shortness of breath Category: Medical Plan: Has experienced shortness of breath on exertion though unclear if this is likely due to a pulmonary issue from his years of smoking or a heart issue. Will send for chest x-ray to evaluate for cardiomegaly. (3) Increased thirst: Code(s): R63.1 - Polydipsia Category: Medical Plan: Has noted increased thirst and urination. There is concerns here for hyperglyc emia in the setting of also weight gain. Has not gotten labs and many years in his willing to do fasting labs including an A1c to evaluate for type 2 diabetes. (4) Postlaminectomy syndrome: Code(s): M96.1 - Postlaminectomy syndrome, not elsewhere classified Category: Medical Plan: Patient continues to have lower back pain he has been able to manage with tramadol 50 mg b.i.d.. Has seen back specialist in the past and if gotten injections when his pain was more evident. He does report some intermittent numbness in his bilateral thighs at times. Will consider re-evaluation by pain management in the future. (5) Smoker: Code(s): F17.200 - Nicotine dependence, unspecified, uncomplicated Category: Social Hx Plan: Patient does understand he needs to quit smoking. Not interested in nicotine replacement more medication at this time. We did discuss the lung cancer screening program as he has been smoking since age 16 though he is considering at this time (6) Elevated blood pressure reading: Code(s): R03.0 - Elevated blood-pressure reading, without diagnosis of hypertension Category: Medical Plan: Have noted elevated blood pressure reading today in office. Offered low-dose blood pressure medication due to his cardiovascular risk as he is a long-time smoker though he declines at this time. He would start monitoring his blood pre ssure at home with goal blood pressure to be below 140/90 (7) Weight gain: Code(s): R63.5 - Abnormal weight gain Category: Medical Plan: Has noted weight gain since last office visit. He reports he has not changed any of his diet. He has not been too physically active due to his lower back pain. He is concerned about his weight gain and would like workup. Orders: Orders Complete Blood Count no Diff Today Z13.1 - Encounter for screening for diabetes mellitus Hemoglobin A1c Today R63.1 - Polydipsia XR chest 2V Today R06.02 - Shortness of breath Comprehensive [place]. Panel Fast Today Z13.1 - Encounter for screening for diabetes mellitus Prostate Specific Antigen Scr Today Z12.5 - Encounter for screening for malignant neoplasm of prostate, Z13.1 - Encounter for screening for diabetes mellitus TSH reflex Free T4 Today R63.5 - Abnormal weight gain NT-proBNP Today R06.02 - Shortness of breath Referrals Cologuard Test Z12.11 - Encounter for screening for malignant neoplasm of colon
[2024-12-20 09:02] VITALS: BP 136/96; PULSE 92; TEMP 36.2; O2SAT 97; BMI 30.5
== END 2024-12-20 09:47 | disposition home or self-care (01) ==
PROVIDERS: PCP Physician Assistant; Visit Provider Physician Assistant
DX: Z00.00 Encounter for general adult medical examination without abnormal findings (principal); R06.02 Shortness of breath; R63.1 Polydipsia; M96.1 Postlaminectomy syndrome, not elsewhere classified; F17.200 Nicotine dependence, unspecified, uncomplicated; R03.0 Elevated blood-pressure reading, without diagnosis of hypertension; R63.5 Abnormal weight gain

== ENCOUNTER → 2024-12-20 08:49 | Outpatient (BNVA) | payer BC, SELFPAY | PROVIDERS: PCP Physician Assistant; Visit Provider Physician Assistant | DX: Z00.00 Encounter for general adult medical examination without abnormal findings (principal); R06.02 Shortness of breath; R63.1 Polydipsia; M96.1 Postlaminectomy syndrome, not elsewhere classified; R03.0 Elevated blood-pressure reading, without diagnosis of hypertension; R63.5 Abnormal weight gain; J45.909 Unspecified asthma, uncomplicated; F17.210 Nicotine dependence, cigarettes, uncomplicated | CPT/HCPCS: 96127 ==

== ENCOUNTER 2024-12-24 08:33 | Outpatient (REF) | payer BC, SELFPAY ==
--- NOTE | ~2024-12-24 | XR_ITS ---
EXAMINATION: XR CHEST CLINICAL INFORMATION: R06.02 - Shortness of breath COMPARISON: None available. TECHNIQUE: 2 views of the chest were obtained. FINDINGS: No significant abnormality is noted involving the heart, lungs, mediastinum, bony thorax or soft tissues. XR/XR chest 2V IMPRESSION: Unremarkable chest examination. Electronically signed by: Christopher Moore MD 12/24/2024 10:12 AM [facility]
[2024-12-24 09:08] LABS: Hematocrit 44.2 % (42.0-52.0); Mean Corpuscular HGB Conc 33.9 g/dl (31.0-36.0); Mean Corpuscular Hemoglobin 31.3 pg (27.0-33.0); Mean Corpuscular Volume 92.1 fL (80.0-98.0); Mean Platelet Volume 9.2 fL (9.4-12.4); Platelet Count 351 X10*3/uL (160-400); Red Cell Distribution Width 12.9 % (11.0-16.0); White Blood Count 14.5 X10*3/uL (4.8-10.8)
[2024-12-24 09:26] LABS: Estimated Average Glucose 103 mg/dL; Hemoglobin A1C 131.7747 umol/L; Hemoglobin A1c % 5.2 % (<6.0); Total Hemoglobin (HGBA1C) 3959.0813 umol/L
[2024-12-24 09:55] LABS: Alanine Aminotransferase 26 U/L (0-40); Albumin Level 4.3 g/dL (3.5-5.0); Alkaline Phosphatase 119 U/L (39-117); Anion Gap 9 (12-20); Aspartate Amino Transferase 21 U/L (5-37); Bilirubin Total 0.2 mg/dL (0.0-1.0); Blood Urea Nitrogen 11 mg/dL (9-16); Carbon Dioxide 28 mmol/L (22-29); Chloride 107 mmol/L (96-108); Estimated Glomerular Filt Rate > 60; Glucose Fasting 97 mg/dL (60-99); Potassium 4.2 mmol/L (3.3-5.1); Sodium 140 mmol/L (135-145); Total Protein 7.3 g/dL (6.5-8.0)
[2024-12-27 16:19] LABS: NT-proBNP <36 pg/mL (<125)
== END 2024-12-24 08:34 | disposition home or self-care (01) ==
LOC: HO.LAB 08:33
PROVIDERS: PCP Physician Assistant; Visit Provider Physician Assistant
DX: Z13.1 Encounter for screening for diabetes mellitus (principal); Z12.5 Encounter for screening for malignant neoplasm of prostate; R06.02 Shortness of breath; R63.1 Polydipsia; R63.5 Abnormal weight gain
CPT/HCPCS: 36415; 71046; 80053; 83036; 83880; 84153; 84443; 85027

== ENCOUNTER → 2024-12-24 08:55 | Outpatient (BNV) | payer BC, SELFPAY | PROVIDERS: PCP Physician Assistant; Visit Provider Radiology Diagnostic Radiology | DX: R06.02 Shortness of breath (principal) | CPT/HCPCS: 71046 ==

== ENCOUNTER 2025-01-11 08:59 | Outpatient (REF) | payer BC, SELFPAY ==
[2025-01-11 09:10] LABS: MANUAL DIFF FLAG NO
[2025-01-11 09:39] LABS: Basophils Absolute Auto 0.1 X10*3/uL (0.0-0.2); Basophils Percent Auto 0.7 % (0-2); Eosinophils Absolute Auto 0.3 X10*3/uL (0.0-0.4); Hematocrit 41.4 % (42.0-52.0); Hemoglobin 14.1 g/dl (14.0-18.0); Imm Gran Abs Auto 0.05 X10*3/uL (0.00-0.03); Imm Gran Pct Auto 0.4 % (0.0-0.4); Lymphocytes Absolute Auto 2.1 X10*3/uL (1.2-4.9); Lymphocytes Percent Auto 15.8 % (20-40); Mean Corpuscular HGB Conc 34.1 g/dl (31.0-36.0); Mean Corpuscular Hemoglobin 31.1 pg (27.0-33.0); Mean Corpuscular Volume 91.2 fL (80.0-98.0); Mean Platelet Volume 9.4 fL (9.4-12.4); Monocytes Percent Auto 7.3 % (2-11); Neutrophils Absolute Auto 9.6 x10*3/uL (2.0-8.3); Neutrophils Percent Auto 73.8 % (45-73); Platelet Count 291 X10*3/uL (160-400); Red Blood Count 4.54 X10*6/uL (4.60-5.80); Red Cell Distribution Width 12.6 % (11.0-16.0); White Blood Count 13.1 X10*3/uL (4.8-10.8)
== END 2025-01-11 09:00 | disposition home or self-care (01) ==
LOC: HO.LAB 08:59
PROVIDERS: PCP Physician Assistant; Visit Provider Physician Assistant
DX: D72.829 Elevated white blood cell count, unspecified (principal)
CPT/HCPCS: 36415; 85025

== ENCOUNTER 2025-04-24 08:03 | Outpatient (AMB) | payer BC, SELFPAY ==
[2025-04-24 08:16] VITALS: BP 128/82; PULSE 92; O2SAT 97; BMI 31.2
--- NOTE | 2025-04-24 08:16 | A.OFFPC_ITS ---
Vital Signs 04/24/25 08:16 Height 5 ft 11 in Weight 224 lb BMI 31.2 BP 128/82 Blood Pressure Location Lt brachial Position Sitting Pulse 92 Pulse Source Pulse Oximeter Pulse Oximetry (%) 97 Oxygen Delivery Method Room Air Intake Visit Reasons: f/u SMoking / LAbs review. 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 Accompanied by: Self / Same As Patient Allergies No Known Allergies [No Known Allergies*] Allergy (Verified 04/24/25 08:31) Medication List - Last Reconciled 04/24/25 by Mark Marino PA-C albuterol sulfate 90 mcg/actuation 2 puffs inhalation Q4H PRN aspirin (Adult Low Dose Aspirin) 81 mg PO DAILY esomeprazole magnesium (Nexium) 20 mg PO DAILY ibuprofen 200 mg PO Q6H PRN imiquimod 5% 1 appl topical 3XW 16 weeks ketoconazole 2% 1 appl topical 2XW 4 weeks lidocaine 5% 1 appl topical DAILY PRN 30 days tramadol 50 mg PO BID 30 days Tobacco use date assessed: 12/20/24 Dental Screening Dental Screen Date: 12/20/24 HPI f/u SMoking / LAbs review. HPI Details Patient is a 54-year-old male here today for follow-up visit Patient has a past medical history significant for chronic lumbar disc disease/post laminectomy syndrome, tobacco use disorder, asthma. Concern--> jarad is presenting with abdominal bloating and weight gain. The abdominal bloating began approximately one year ago and was accompanied by a rapid weight gain. The patient describes the sensation of tightness in the abdomen, difficulty tying shoes, and increased breathing difficulty. He reports soft stools but denies constipation or diarrhea, attributing the change in bowel habits to the medication Nexicon. Heartburn is absent unless Nexicon is discontinued. He also does report having shortness of breath on exertion which has been a chronic issue that he relates to his years of smoking. Recent chest x-ray clear without any evidence of infiltrates or congestion.. He does have lower extremity edema related to peripheral vascular disease though unclear if he is developing signs of heart failure. He does have elevated blood pressure readings today in office. .. Asthma: Reports his asthma is fairly well controlled, only seldomly has to use his albuterol rescue inhaler. Denies any nighttime awakenings with asthma symptoms. Unfortunately continues to smoke half a pack of cigarettes per day. Class 1 obesity: Have noted weight gain since last office visit. Today's BMI at 30.5. .. Smokeing: Still smoking 10-12 cigs per day, he is interested in lung cancer screening program as he reports he has been smoking since age 16 .. Lumbar disc disease: Continues with tramadol b.i.d. with decent pain relief. He is asking for a increase though did not feel it is appropriate. He is considering returning to Pain Management for further pain reduction modalities and injections Laboratory Tests 12/24/24 01/11/25 08:52 09:08 WBC 14.5 H 13.1 H Hgb 14.1 Hemoglobin A1c % 5.2 PSA Screen 1.00 TSH 2.40 FOR[facility]LY [facility] Medical History Chronic pain syndrome Postlaminectomy syndrome Left lumbar radiculopathy Asthma Surgical History History of back surgery Family History Mother Mental health disorder Thyroid condition Maternal Aunt Lung cancer Social History Housing: House Alcohol intake: current Alcohol intake frequency: holidays/special occasions only Alcohol type: beer Patient Tobacco Use Status: Current everyday Tobacco user Tobacco use type: Cigarette Cigarettes Per Day: 15 Years Smoked: 35 Packs per year/per ci.25 e-Cigarette/Vaping Use: Never Used Second Hand Smoke Exposure: Yes service: No Current occupational status: employed 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 1. Little interest or pleasure in doing things: not at all 2. Feeling down, depressed, or hopeless: not at all 3. Trouble falling or staying asleep, or sleeping too much: not at all 4. Feeling tired or having little energy: not at all 5. Poor appetite or overeating: not at all 6. Feeling bad about yourself - or that you are a failure or have let yourself or your family down: not at all 7. Trouble concentrating on things, such as reading the newspaper or watching television: not at all 8. Moving or speaking so slowly that other people could have noticed. Or the o pposite - being so fidgety or restless that you have been moving around a lot more than usual: not at all 9. Thoughts that you would be better off or of hurting yourself in some way: not at all Total score: 0 Depression Screening Interpretation: Negative Depression Screening Done: Yes 63523 - PHQ-9 Billing: Yes Source: Developed by Drs. Dawood Kidd, Karo Morris, Ari Berman and colleagues, with an educational kristin from [employer]. Thrive Questionnaire Date Thrive assessed: 12/20/24 I am a: Patient What is your living situation today?: I have a steady place to live Within the past 12 months, did the food you bought not last and you didn't have the money to get more?: I choose not to answer this question Within the past 12 months, did you worry whether your food would run out before you got money to buy more?: I choose not to answer this question Do you have trouble paying for medicines?: I choose not to answer this question Do you have trouble getting transportation to medical appointments?: I choose not to answer this question Do you have trouble paying your heating and electricity bill?: I choose not to answer this question Do you have trouble taking care of your child, family member or friend?: I choose not to answer this question Do you have trouble with day-to-day activities such as bathing, preparing meals, shopping, managing finances, etc.?: I choose not to answer this question Are you currently unemployed and looking for a job?: I choose not to answer this question Are you interested in more education?: I choose not to answer this question Please select the resources that you would like help with: None Currently or been in a relationship where the following occur: No concerns reported THRIVE Score: 0 AUDIT C Alcohol Use Questionnaire (AUDIT-C) 1. How often do you have a drink containing alcohol?: Monthly or less 2. How many drinks containing alcohol do you have on a typical day when you are drinking?: 1 or 2 3. How often do you have six or more drinks on one occasion?: Never Total Score: 1 GERBER-7 AMB Questionnaire GERBER-7 Date GERBER - 7 assessed: 12/20/24 Feeling nervous, anxious, or on edge: 0 = Not at all Not being able to stop or control worryin = Not at all Worrying too much about different things: 0 = Not at all Trouble relaxin = Not at all Being so restless that it is hard to sit still: 0 = Not at all Becoming easily annoyed or irritable: 0 = Not at all Feeling afraid as if something awful might happen: 0 = Not at all Total GERBER-7 score (0-4 normal; 5-9 mild; 10-14 moderate; 15-21 severe): 0 Source: Developed by Drs. Dawood Kidd, Karo Morris, Ari Berman and colleagues, with an educational kristin from [employer]. GERBER-7 Assessment Billing GERBER-7 Assessment Tool: GERBER-7 Assessment 77903 Review of Systems Const Denies headache(s) Eyes Denies loss of vision ENT Denies vertigo, Denies dizziness, Denies headache(s) and Denies sore throat Card Denies chest pain, Denies leg edema and Denies lightheadedness Resp Denies cough, Denies hemoptysis and Denies wheezing GI Denies abdominal pain, Denies melena, Denies constipation, Denies diarrhea and Denies vomiting Denies dysuria, Denies urinary frequency and Denies urinary urgency Musc Denies arthralgias, Denies joint swelling, Denies numbness and Denies tingling Neuro Denies Abnormal speech present, Denies behavioral changes, Denies vertigo, Denies dizziness, Denies headache(s), Denies loss of vision, Denies memory loss, Denies numbness and Denies tingling Psych Denies anxiety, Denies behavioral changes, Denies depression, Denies memory loss and Denies panic attacks Matthieu/Lymph Denies easy bleeding and Denies easy bruising Aller/Immun Denies wheezing Physical exam (Primary Care) Vital Signs: Last Vital Signs Pulse 92 04/24/25 08:16 BP 128/82 04/24/25 08:16 Pulse Ox 97 04/24/25 08:16 Oxygen Delivery Method Room Air 04/24/25 08:16 BMI result Body Mass Index 31.2 BMI Assessment/Plan discussion: High BMI High, discussed plan: lifestyle, weight reduction, dietary and physical activity Tobacco/Smoking Status: Tobacco use Status Tobacco use date assessed 12/20/24 04/24/25 08:19 Patient Tobacco Use Status Current everyday Tobacco 04/24/25 08:19 Tobacco use type Cigarette 04/24/25 08:19 e-Cigarette/Vaping Use Never Used 04/24/25 08:19 Are you ready to quit: No Tobacco cessation counseling provided: Yes Items discussed: Nicotine replacement Relapse Prevention: discussed the importance of a supportive environment, discussed negative mood or depression after quitting, weight gain after smoking is common and discussed dietary, exercise and/or lifestyle changes Number of minutes spent counselin CPT code: 99144 - 4-10 Minutes PHQ-9: PHQ-9 Score PHQ-9: Total score 0 04/24/25 08:55 Depression Screening Interpretation: Negative Thrive Assessment: Date of Thrive Assessment Date Thrive assessed 12/20/24 04/24/25 08:19 Currently or been in a relationship where the following occur: No concerns reported Const Other: Obese General: healthy appearing, no acute distress, alert and awake Nutritional Appearance: well nourished Orientation/consciousness: oriented to person, oriented to place and oriented to time HENMT Ears: TM's normal bilaterally General nose exam: Normal nasal mucous membranes and turbinates present Eyes Conjunctivae: conjunctivae normal Sclerae: sclerae normal Pupils: Equal, round and reactive pupils present Neck Neck: Yes no lymphadenopathy and Yes no JVD Thyroid: Thyroid normal Carotids: no bruits Resp Effort & Inspection: normal respiratory effort and not tachypneic Auscultation: no crackles, no rales, no rhonchi and no wheezes Cardio Rate: regular rate Rhythm: regular rhythm Heart sounds: no murmurs and normal S1 and S2 GI Other: MILD ABDOMINAL DISTENTION Palpation (GI): Soft to palpation, nontender, no hepatomegaly and no splenomegaly Auscultation: normal bowel sounds Skin General skin exam: no rashes or lesions noted and dry skin Neuro General: oriented to person, oriented to place and oriented to time Cranial nerves: Yes Equal, round and reactive pupils present Speech: No Abnormal speech present Gait exam (Neuro): Normal gait present Motor exam (neuro): no tremor noted Extrem Right upper extremity: full ROM Left upper extremity: full ROM Right lower extremity: full ROM; no edema Left lower extremity: full ROM; no edema Psych Mental Status: mental status grossly normal Speech and movement: Normal speech and movement present Affect: normal affect Attitude: cooperative Thought process: Normal thought process present Coding Level of Care Code Est Pt Level 4 (25184) Diagnoses Abdominal bloating R14.0 SOB (shortness of breath) on exertion R06.02 Postlaminectomy syndrome M96.1 Smoker F17.200 Weight gain R63.5 Gastroesophageal reflux disease without esophagitis K21.9 Esophagitis presence: without esophagitis Additional Codes PHQ-9 - 73817 - PHQ-9 Billing: Yes ([id number]) Vital Signs *Quality* - CPT code: 17884 - 4-10 Minutes ([id number]) GERBER-7 Assessment Billing - GERBER-7 Assessment Tool: GERBER-7 Assessment 25463 ([id number]) Assessment & Plan Assessment & Plan (1) Abdominal bloating: Code(s): R14.0 - Abdominal distension (gaseous) Category: Medical Plan: Abdominal bloating persists with weight gain and soft stools. I recommended a CT scan of the abdomen and pelvis and a rn embedded referral for potential endoscopy to evaluate possible causes like H. pylori infection. A stool test for H. pylori was recommended. Dietary review and medication adjustments may be necessary if symptoms persist. (2) SOB (shortness of breath) on exertion: Code(s): R06.02 - Shortness of breath Category: Medical Plan: Has experienced shortness of breath on exertion though unclear if this is likely due to a pulmonary issue from his years of smoking or a heart issue. Chest x- ray normal. Will consider pulmonary function testing . For now will evaluate his abdominal bloating with CT abdomen and pelvis (3) Postlaminectomy syndrome: Code(s): M96.1 - Postlaminectomy syndrome, not elsewhere classified Category: Medical Plan: Patient continues to have lower back pain he has been able to manage with tramadol 50 mg b.i.d.. Has seen back specialist in the past and if gotten injections when his pain was more evident. He does report some intermittent numbness in his bilateral thighs at times. Will consider re-evaluation by pain management in the future. (4) Smoker: Code(s): F17.200 - Nicotine dependence, unspecified, uncomplicated Category: Social Hx Plan: Patient does understand he needs to quit smoking. Not interested in nicotine replacement more medication at this time. We did discuss the lung cancer screening program as he has been smoking since age 16 though he is considering at this time (5) Weight gain: Code(s): R63.5 - Abnormal weight gain Category: Medical Plan: Has noted weight gain since last office visit. He reports he has not changed any of his diet. He has not been too physically active due to his lower back pain. He is concerned about his weight gain and would like workup. (6) GERD (gastroesophageal reflux disease): Code(s): K21.9 - Gastro-esophageal reflux disease without esophagitis Category: Medical Qualifiers: Esophagitis presence: without esophagitis Qualified Code(s): K21.9 - Gastro-esophageal reflux disease without esophagitis Plan: Will test for H pylori due to patient's chronic abdominal bloating. Orders: Orders CT abdomen pelvis wo IV con Today R14.0 - Abdominal distension (gaseous) Transglutaminase IgA Today R14.0 - Abdominal distension (gaseous) Transglutaminase Ab IgG Today R14.0 - Abdominal distension (gaseous) H pylori Ag Stool Today K21.9 - Gastro-esophageal reflux disease without esophagitis
== END 2025-04-24 08:58 | disposition home or self-care (01) ==
LOC: HO.HMCH 08:04
PROVIDERS: PCP Physician Assistant; Visit Provider Physician Assistant
DX: R14.0 Abdominal distension (gaseous) (principal); R06.02 Shortness of breath; M96.1 Postlaminectomy syndrome, not elsewhere classified; F17.200 Nicotine dependence, unspecified, uncomplicated; R63.5 Abnormal weight gain; K21.9 Gastro-esophageal reflux disease without esophagitis

== ENCOUNTER → 2025-04-24 08:03 | Outpatient (BNVA) | payer BC, SELFPAY | PROVIDERS: PCP Physician Assistant; Visit Provider Physician Assistant | DX: R14.0 Abdominal distension (gaseous) (principal); R06.02 Shortness of breath; M96.1 Postlaminectomy syndrome, not elsewhere classified; R63.5 Abnormal weight gain; K21.9 Gastro-esophageal reflux disease without esophagitis; F17.200 Nicotine dependence, unspecified, uncomplicated; Z71.6 Tobacco abuse counseling | CPT/HCPCS: 96127 ==